=== PATIENT | male | born 1960 | race Caucasian/White ===

== ENCOUNTER → 2025-02-27 10:22 | Outpatient (REF) | payer OTHER, SELFPAY | LOC: HWCARD 10:22 | PROVIDERS: ATTENDING PHYSICIAN Internal Medicine | DX: R93.1 Abnormal findings on diagnostic imaging of heart and coronary circulation (principal) | CPT/HCPCS: 93005 ==

== ENCOUNTER → 2025-04-03 13:19 | Outpatient (REF) | payer OTHER, SELFPAY | LOC: RCS 13:19 | PROVIDERS: ATTENDING PHYSICIAN Internal Medicine | DX: R94.31 Abnormal electrocardiogram [ECG] [EKG] (principal) | CPT/HCPCS: 93017; 93350 ==